=== PATIENT | male | born 1950 ===

== ENCOUNTER 2017-11-12 08:30 | Inpatient (IN) | payer OTHER ==
[~2017-11-12] VITALS: Ht 167.6 cm; Wt 68.9 kg
[2017-11-13] MEDS ORDERED: ASA81 MG PO (12:27)
[2017-11-13] MEDS ORDERED: LIPITOR20 MG PO (12:28)
[2017-11-13] MEDS ORDERED: COZAAR50 MG PO (12:30)
[2017-12-01] MEDS ORDERED: PANTOPRAZOLE SO40 MG PO (11:00)
[2017-12-01] MEDS ORDERED: TRAM1TAB98 PO (11:00)
[2017-12-01] MEDS ORDERED: Intestinex CAP PO (11:00)
== END 2017-12-01 12:31 | disposition home or self-care (01) | DRG 331 ==
LOC: O/R 11-28 08:30 → SURH 11-28 12:06 → O/R 11-28 12:06 → SURH 11-28 23:24
PROVIDERS: Surgery
PROC: 0DTP4ZZ Resection of Rectum, Percutaneous Endoscopic Approach (ICD-10-PCS; 2017-11-28)
PROC: 07TC4ZZ Resection of Pelvis Lymphatic, Percutaneous Endoscopic Approach (ICD-10-PCS; 2017-11-28)
PROC: 0DJD8ZZ Inspection of Lower Intestinal Tract, Via Natural or Artificial Opening Endoscopic (ICD-10-PCS; 2017-11-28)
PROC: 0DTN4ZZ Resection of Sigmoid Colon, Percutaneous Endoscopic Approach (ICD-10-PCS; principal; 2017-11-28 19:45)
DX: C19 Malignant neoplasm of rectosigmoid junction (principal); R59.0 Localized enlarged lymph nodes; E03.8 Other specified hypothyroidism; I11.9 Hypertensive heart disease without heart failure